=== PATIENT | female | born 1995 | race Caucasian/White ===

== ENCOUNTER 2017-10-28 09:14 | Emergency (ER) | payer SELFPAY ==
[2017-10-28 10:08] LABS: URINE HCG POC HCG POSITIVE (Negative)
[2017-10-28 10:19] LABS: BILIRUBIN,URINE SMALL (NEG); CLARITY,URINE CLEAR; COLOR,URINE AMBER; GLUCOSE,URINE NEGATIVE (NEG); NITRITE,URINE POSITIVE (NEG); PROTEIN,URINE NEGATIVE (NEG-TRACE)
[2017-10-28 10:27] LABS: BACTERIA,URINE MANY /HPF (0-FEW); RBC,URINE OCC /HPF (0-2); SQUAMOUS EPITHELIAL CELL,UR MOD /LPF
[2017-10-28] MEDS: ACETAMINOPHEN 500 MG TABLET PO (10:34)
== END 2017-10-28 11:10 | disposition home or self-care (01) ==
LOC: ER 09:14
DX: Z33.1 Pregnant state, incidental (principal); N39.0 Urinary tract infection, site not specified
CPT/HCPCS: 81001; 81025; 99283